=== PATIENT | female | born 1975 | race Caucasian/White ===

== ENCOUNTER 2019-06-17 13:39 | Emergency (ER) | payer OTHER ==
--- OUTSIDE RECORDS SUMMARY | 2019-06-17 13:46 | XMS REPORT | Continuity of Care Document ---
:1975 External Reference #:[id number] Author Name Luis Fernando Valdez FNP Address [address] [place] [id number] Care Team Providers Name Role Phone Luis Fernando Valdez TIE SAWYER - Nurse Care Team Information Transfer Driver [phone] Practitioner Problems Active Problems Provider Date Irritable bowel syndrome characterized by Kenji Solano MD Onset: 07/15/2016 constipation Indigestion Kenji Solano MD Onset: 07/15/2016 Allergic rhinitis Luis Fernando Valdez FNP Onset: 08/19/2017 Social History Type Date Description Comments Sex Unknown Tobacco Use Start: Unknown Never Smoked Cigarettes Smoking Status Reviewed: 06/05/19 Never Smoked Cigarettes ETOH Use Occasionally consumes alcohol Tobacco Use Start: Unknown Patient has never smoked Recreational Drug Use Denies Drug Use Allergies, Adverse Reactions, Alerts Active Allergies Reaction Severity Comments Date Hydrocodone resp issues 05/17/2016 Medications Active Medications SIG Qnty Indications Ordering Provider Date Miralax mix capful 238GramBottl Jeffery, 01/20/2019 Powder with water SATISH Wilhelm every other day Ibuprofen as needed Unknown 200mg Capsules History Medications Amoxicillin/Clavulanate 1 by mouth 20tabs Lazaro-Bhavya, 01/20/2019 - Potassium twice a day SATISH Wilhelm 06/05/2019 875-125mg Tablets Benzonatate take one tab 30caps Jeffery, 01/20/2019 - 100mg Capsules orally three SATISH Wilhelm 06/05/2019 times a day as needed for cough Immunizations CPT Code Status Date Vaccine Lot # [id number] Given 02/28/2019 Influenza Virus Vaccine, Quadrivalent, 36 Mos+, .5ML [id number] Given 08/29/2018 Tdap injection [id number] Given 02/19/2017 Influenza Virus Vaccine Quadrivalent Iiv4 Split Preser Free Id Vital Signs Date Vital Result Comment 06/05/2019 10:18am BP Systolic 112 mmHg BP Diastolic 68 mmHg Body Temperature 97.9 F Heart Rate 74 /min Respiratory Rate 18 /min Height 72 inches 6'0" Weight 169.00 lb BMI (Body Mass Index) 22.9 kg/m2 BSA (Body Surface Area) 1.98 m2 [place] body weight in kilograms 73 kg O2 % BldC Oximetry 98 % Ra 01/20/2019 11:15am BP Systolic 107 mmHg BP Diastolic 70 mmHg Body Temperature 97.4 F Heart Rate 68 /min Respiratory Rate 16 /min Weight 161.25 lb Pain Level 2 O2 % BldC Oximetry 100 % Results Test Acquired Date Facility Test Result H/L Range Note Laboratory test 06/05/2019 [facility] Influenza A positive finding Rapid Procedures Date Code Description Status 01/09/2019 56585785 Mammogram Completed 10/03/2018 [id number] Colonoscopy Completed Medical Devices Description No Information Available Encounters Type Date Location Provider Dx Diagnosis Office Visit 06/05/2019 [facility] J09.x2 Flu due to ident 10:15a [facility] dann Gould influenza A SATISH virus w oth resp manifest Office Visit 01/20/2019 [facility] Jia Gil01.00 Acute maxillary 11:15a SATISH Wilhelm sinusitis, unspecified Assessments Date Code Description Provider 06/05/2019 J09.x2 Influenza due to identified novel Luis Fernando Valdez FNP influenza A virus with other respiratory manifestations 01/20/2019 J01.00 Acute maxillary sinusitis, Xiomara Gil FNP unspecified Plan of Treatment Future Appointment(s):08/31/2019 3:30 pm - Luis Fernando Valdez FNP at [facility]06/05/2019 - Luis Fernando Valdez FNPJ09.x2 Influenza due to identified novel influenza A virus with other respiratory manifestationsComments :rapid flu + Adiscussed possible co-morbid sinus infection; howeve r without headache is more likely due to sinus congestionSupportive treatments - warm salt water gargles, warm fluids, cool mist humidifier, fever and pain reducers ( Tylenol or Ibuprofen) as needed, Vics vapor rub and recommend saline nasal spray or irrigation for nasal congestion. Over the counter Pseudofed may be used for runny noseand post nasal drainage Rest. discussed possible prophylaxis treatment for those in family. Not intime frame for treatment with Tamiflu. Functional Status Description No Information Available Mental Status Description No Information Available Referrals Description No Information Available
[2019-06-17 14:26] VITALS: BP 119/70
--- NOTE | 2019-06-17 14:57 | UC ---
Laceration HPI - HPI Summary HPI Summary: "I cut my finger this morning." This AM cut her r index finger cleaning a metal drain. Initially held pressure to control bleeding, "doused" with H2O2, has changed the bandage several times, and has applied an ice pack. 2019 TETANUS. - History Of Current Complaint Chief Complaint: UCLaceration Stated Complaint: RT INDEX FINGER LACERATION Time Seen by Provider: 06/17/19 14:41 Hx Obtained From: Patient Hx Last Menstrual Period: 06/13/2019 Laceration Location: Finger Mechanism Of Injury: Sharp Trauma Onset/Duration: Sudden Onset Pain Intensity: 3 Pain Scale Used: 0-10 Numeric - Allergies/Home Medications Allergies/Adverse Reactions: Allergies Allergy/AdvReac Type Severity Reaction Status Date / Time hydrocodone [From Vicodin] Allergy Unknown Verified 06/17/19 14:20 Reaction Details Home Medications: Home Medications Acetaminophen [Acetaminophen ER] 1,300 mg PO ONCE 06/17/19 [History Confirmed ] PMH/Surg Hx/FS Hx/Imm Hx - Additional Past Medical History Additional PMH: no chronic conditions. Previously Healthy: Yes - Surgical History Surgical History: Yes Surgery Procedure, Year, and Place: Tonsillectomy, ~1990 - Family History Known Family History: Positive: Non-Contributory - Social History Alcohol Use: None Substance Use Type: None Smoking Status (MU): Never Smoked Tobacco - Immunization History Most Recent Tetanus Shot: 2019 Review of Systems All Other Systems Reviewed And Are Negative: Yes Constitutional: Negative: Fever, Chills, Fatigue Skin: Positive: Other - R index laceration , no nail involvement Physical Exam Triage Information Reviewed: Yes Appearance: Well-Appearing Vital Signs: Initial Vital Signs Temp 98.7 F 06/17/19 14:17 Pulse 64 06/17/19 14:17 Resp 16 06/17/19 14:17 BP 119/70 06/17/19 14:17 Pulse Ox 100 06/17/19 14:17 Vital Signs Reviewed: Yes Neurological: Positive: Alert Skin: Positive: Other - approx 2.5 cm lac with mild active bleeding which was able to be stopped. R 2nd finger dorsal aspect between PIP and DIP.. Negative: Rashes Laceration Repair - Laceration Repair 1 Description: Linear Laceration Size After Repair: Length (cm) - 2.5cm Modified For Repair: No Irrigation With Pressure Irrigation Device: Yes Closure Material: SteriStrips Closure Method: Single Layer Laceration Course/Dx - Course/Dx Course Of Treatment: L index laceration: Superficial laceration with no active bleeding after we were able to help stop. Area was irrigated with 250mL NS each. Pressure dressing to second finger to minimize bleeding. Steri strips used w/ tube gauze after. Of note there was a smaller laceration nurse applied band aide to on R thumb. - Differential Dx - Laceration/Wound Differental Diagnoses: Cellulitis, Laceration - Diagnosis Provider Diagnosis: Laceration Discharge ED - Sign-Out/Discharge Documenting (check all that apply): Patient Departure All imaging exams completed and their final reports reviewed: No Studies - Discharge Plan Condition: Good Disposition: HOME Patient Education Materials: Laceration (ED) Referrals: Rona Valdez NP [Primary Care Provider] - Additional Instructions: ok to remove after 7 days. please return if signs of infection develop. ok to use large gloves for showering. - Billing Disposition and Condition Condition: GOOD Disposition: Home - Attestation Statements Provider Attestation: I was available for consult. This patient was seen by the [facility]. The patient was not presented to , seen by or examined by -Dong Kelly MD
== END 2019-06-17 15:25 | disposition home or self-care (01) ==
LOC: UCCORT 13:39
DX: S61.210A Laceration without foreign body of right index finger without damage to nail, initial encounter (principal); W26.8XXA Contact with other sharp object(s), not elsewhere classified, initial encounter; Y92.9 Unspecified place or not applicable; Z88.5 Allergy status to narcotic agent
CPT/HCPCS: 99212; G0463